=== PATIENT | female | born 1955 | race Two or more races ===

== ENCOUNTER → 2017-03-28 | Emergency (ER) | payer OTHER ==
[~2017-03-28] VITALS: Ht 149.9 cm; Wt 78.9 kg
[~2017-03-28] MED LIST: AMOX1TAB5 PO; FLAGYL500MG PO; IMODIUM A-D2 MG PO; LEVSIN/SL0.125 MG SL; PRINIVIL5 MG; ZYNCOF 20-400120 ML PO
== END | disposition home or self-care (01) ==
LOC: ER 18:39
DX: J06.9 Acute upper respiratory infection, unspecified (principal); J11.1 Influenza due to unidentified influenza virus with other respiratory manifestations